=== PATIENT | male | born 1950 | race Caucasian/White ===

== ENCOUNTER 2022-04-05 15:45 | Emergency (ER) | payer MEDICARE ==
[2022-04-05] MEDS ORDERED: Sodium Chloride 0.9% 10 ML Syringe FLUSH PRN (16:01)
[2022-04-05] MEDS: Sodium Chloride 0.9% 1,000 ML IV ONE ×2 (16:30→17:52)
[2022-04-05 16:50] LABS: ANION GAP 13.2 mmol/L (5-15)
[2022-04-05] MEDS: Sodium Chloride 0.9% 1,000 ML ONE (19:08)
== END 2022-04-05 19:00 | disposition home or self-care (01) ==
LOC: KA.ED 15:45
DX: K40.90 Unilateral inguinal hernia, without obstruction or gangrene, not specified as recurrent (principal); F17.210 Nicotine dependence, cigarettes, uncomplicated
CPT/HCPCS: 36415; 71046; 74177; 80053; 81001; 82150; 83605; 83690; 85025; 93010; 96360; 96361; 99284; 99284-25; J7030